=== PATIENT | male | born 2005 | race Caucasian/White ===

== ENCOUNTER 2024-09-04 02:50 | Emergency (ER) | payer BC, SELFPAY | END 2024-09-04 03:18 | disposition home or self-care (01) | LOC: MADERS 02:50 | DX: S30.812A Abrasion of penis, initial encounter (principal); F17.210 Nicotine dependence, cigarettes, uncomplicated; V89.2XXA Person injured in unspecified motor-vehicle accident, traffic, initial encounter; Z55.6 Problems related to health literacy | CPT/HCPCS: 99283 ==